=== PATIENT | female | born 1960 | race Caucasian/White ===

== ENCOUNTER 2017-11-07 18:28 | Emergency (ER) | payer MEDICAID ==
[~2017-11-07] VITALS: Ht 152.4 cm; Wt 70.8 kg
[2017-11-07 18:44] VITALS: Ht 152.4 cm; Wt 70.8 kg
[2017-11-07 21:59] VITALS: BP 127/81
== END 2017-11-07 21:59 | disposition home or self-care (01) ==
LOC: ED 18:28
DX: S83.91XA Sprain of unspecified site of right knee, initial encounter (principal); S93.601A Unspecified sprain of right foot, initial encounter; W01.0XXA Fall on same level from slipping, tripping and stumbling without subsequent striking against object, initial encounter; Y93.89 Activity, other specified; Y92.89 Other specified places as the place of occurrence of the external cause; Y99.8 Other external cause status

== ENCOUNTER 2019-01-23 21:36 | Emergency (ER) | payer MEDICAID ==
[~2019-01-23] VITALS: Ht 154.9 cm; Wt 75.8 kg
[2019-01-23 22:57] VITALS: BP 123/79
== END 2019-01-23 22:57 | disposition home or self-care (01) ==
LOC: ED 21:36
DX: S81.052A Open bite, left knee, initial encounter (principal); S81.051A Open bite, right knee, initial encounter; L03.116 Cellulitis of left lower limb; L03.115 Cellulitis of right lower limb; W57.XXXA Bitten or stung by nonvenomous insect and other nonvenomous arthropods, initial encounter; Y93.89 Activity, other specified; Y92.89 Other specified places as the place of occurrence of the external cause; Y99.8 Other external cause status
CPT/HCPCS: J1200